=== PATIENT | female | born 1945 | race African-American/Black ===

== ENCOUNTER 2017-10-23 19:04 | Inpatient (IN) | payer MEDICARE, OTHER ==
[~2017-10-23] VITALS: Ht 170.2 cm; Wt 94.0 kg
[~2017-10-23 19:04] MED LIST: AMLODIPINE BESY10 MG; BP pill; BYSTOLIC 10MG10 MG; FENOFIBRATE145 M1; LEVEMIR100 UNITS/; NKM; [UNRECOGNIZED DRUG - REMARK]
[2017-10-23] MEDS ORDERED: Morphine Sulfate 2mg/ml Inj IVP ONE (19:15)
[2017-10-23 19:32] LABS: BASOPHILS % (AUTO) 1.4 % (0.0-2.0); EOSINOPHILS % (AUTO) 1.6 % (0.0-3.0); HEMATOCRIT 39.8 % (37.0-47.0); HEMOGLOBIN 12.4 G/DL (12.0-16.0); LYMPHOCYTES % (AUTO) 26.1 % (20.0-45.0); MEAN CORPUSCULAR VOLUME 92 FL (80-99); MONOCYTES % (AUTO) 7.1 % (1.0-10.0); NEUTROPHILS % (AUTO) 63.8 % (45.0-75.0); PLATELET COUNT 237 K/UL (150-450); RED BLOOD COUNT 4.34 M/UL (4.20-5.40); RED CELL DISTRIBUTION WIDTH 12.9 % (11.6-14.8); WHITE BLOOD COUNT 7.5 K/UL (4.8-10.8)
[2017-10-23 19:35] VITALS: BP 217/93
--- NOTE | 2017-10-23 19:40 | Emergency Room Report ---
History of Present Illness General Chief Complaint: Chest Pain Source: Patient, Medical Record Present Illness HPI Patient's a 72-year-old female presented after increased chest pain for approximately 30 minutes. Patient prior history of hypertension as well as cardiac disease. She reports having prior OH. She presenting pain to her back as well as to her chest. She reports having pain but cannot state the character of it. She denies any fever. She reports having diuretic use. Allergies: Coded Allergies: ASPIRIN (Unverified Allergy, Unknown, 05/08/14) PENICILLINS (Unverified Allergy, Unknown, 05/08/14) Uncoded Allergies: dye (Allergy, Severe, 05/09/14) Patient History Past Medical History: see triage record, old chart reviewed Reviewed Nursing Documentation: PMH: Agreed, PSxH: Agreed Nursing Documentation-PMH Past Medical History: No History, Except For Hx Hypertension: Yes Hx Diabetes: Yes Hx Cancer: No Hx Gastrointestinal Problems: No Hx Neurological Problems: Yes Hx Cerebrovascular Accident: Yes Review of Systems All Other Systems: negative except mentioned in HPI Physical Exam Vital Signs Date Time Temp Pulse Resp B/P (MAP) Pulse Ox O2 Delivery O2 Flow Rate FiO2 10/23/17 19:06 98.1 75 12 99 Room Air 10/23/17 19:35 217/93 Sp02 EP Interpretation: reviewed, normal General Appearance: normal inspection, well appearing, no apparent distress, alert, GCS 15 Head: atraumatic ENT: normal ENT inspection, hearing grossly normal, normal voice Neck: normal inspection, full range of motion, supple, no bony tend Respiratory: normal inspection, lungs clear, normal breath sounds, no respiratory distress, no retraction, no wheezing Cardiovascular #1: regular rate, rhythm, no edema Gastrointestinal: normal inspection, normal bowel sounds, non tender, soft, no guarding, no hernia Genitourinary: no CVA tenderness Musculoskeletal: normal inspection, back normal, normal range of motion Neurologic: normal inspection, alert, oriented x3, responsive, supervisor inspection department III-XII nml as tested, speech normal Psychiatric: normal inspection, judgement/insight normal, mood/affect normal Skin: normal inspection, normal color, no rash Medical Decision Making Diagnostic Impression: Primary Impression: Chest pain Additional Impression: Hypertensive urgency ER Course Patient presented for chest pain. Differential diagnosis included but was not limited to acute coronary syndrome, pulmonary embolism, pneumonia, aortic dissection, shingles, pneumothorax, aortic dissection, esophageal rupture, pericarditis. Because of complexity of patient's case laboratory testing and imaging studies were ordered.Lab for testing showed negative troponin as well as BNP approximately 300. EKG interpreted by me showed normal sinus rhythm with a rate of [address] changes. Generalized T-wave inversion was noted. CT the chest without contrast was ordered due to patient's possible effusions on plain film x-ray. CT showed no evidence of infiltrate. Due to the patient' s acute onset of chest pain as well as changes on EKG she'll be admitted to the hospital for further evaluation. Dr. Osuna was contacted for for inpatient management Labs Test 10/23/17 19:08 10/23/17 20:50 White Blood Count 7.5 K/UL (4.8-10.8) Red Blood Count 4.34 M/UL (4.20-5.40) Hemoglobin 12.4 G/DL (12.0-16.0) Hematocrit 39.8 % (37.0-47.0) Mean Corpuscular Volume 92 FL (80-99) Mean Corpuscular Hemoglobin 28.7 PG (27.0-31.0) Mean Corpuscular Hemoglobin Concent 31.3 G/DL (32.0-36.0) Red Cell Distribution Width 12.9 % (11.6-14.8) Platelet Count 237 K/UL (150-450) Mean Platelet Volume 8.4 FL (6.5-10.1) Neutrophils (%) (Auto) 63.8 % (45.0-75.0) Lymphocytes (%) (Auto) 26.1 % (20.0-45.0) Monocytes (%) (Auto) 7.1 % (1.0-10.0) Eosinophils (%) (Auto) 1.6 % (0.0-3.0) Basophils (%) (Auto) 1.4 % (0.0-2.0) Sodium Level 138 MMOL/L (136-145) Potassium Level 3.8 MMOL/L (3.5-5.1) Chloride Level 100 MMOL/L (98-107) Carbon Dioxide Level 29 MMOL/L (21-32) Anion Gap 9 mmol/L (5-15) Blood Urea Nitrogen 21 mg/dL (7-18) Creatinine 1.1 MG/DL (0.55-1.30) Estimat Glomerular Filtration Rate mL/min (>60) Glucose Level 280 MG/DL (74-106) Calcium Level 9.5 MG/DL (8.5-10.1) Total Bilirubin 0.2 MG/DL (0.2-1.0) Aspartate Amino Transf (AST/SGOT) 14 U/L (15-37) Alanine Aminotransferase (ALT/SGPT) 25 U/L (12-78) Alkaline Phosphatase 107 U/L (46-116) Total Creatine Kinase 192 U/L (26-308) Creatine Kinase MB 2.4 NG/ML (0.0-3.6) Creatine Kinase MB Relative Index 1.2 Troponin I 0.057 ng/mL (0.000-0.056) Pro-B-Type Natriuretic Peptide 307 pg/mL (0-125) Total Protein 9.1 G/DL (6.4-8.2) Albumin 3.9 G/DL (3.4-5.0) Globulin 5.2 g/dL Albumin/Globulin Ratio 0.8 (1.0-2.7) Lipase 175 U/L (73-393) Urine Color Pale yellow Urine Appearance Clear Urine pH 6.5 (4.5-8.0) Urine Specific [place] 1.005 (1.005-1.035) Urine Protein 2+ (NEGATIVE) Urine Glucose (UA) 4+ (NEGATIVE) Urine Ketones 1+ (NEGATIVE) Urine Occult Blood 2+ (NEGATIVE) Urine Nitrite Negative (NEGATIVE) Urine Bilirubin Negative (NEGATIVE) Urine Urobilinogen Normal MG/DL (0.0-1.0) Urine Leukocyte Esterase Negative (NEGATIVE) Urine RBC 2-4 /HPF (0 - 2) Urine WBC 0-2 /HPF (0 - 2) Urine Squamous Epithelial Cells Occasional /LPF Urine Bacteria Occasional /HPF (NONE) EKG Diagnostic Results Rate: normal Rhythm: NSR ST Segments: other - twave inversion Last Vital Signs Date Time Temp Pulse Resp B/P (MAP) Pulse Ox O2 Delivery O2 Flow Rate FiO2 10/23/17 19:35 98.1 25 217/93 99 Room Air 10/23/17 19:06 75 Status: unchanged Disposition: ADMITTED INPATIENT Condition: Serious Ashok Scanlon Oct 23, 2017 19:40
[2017-10-23 20:20] LABS: ANION GAP 9 mmol/L (5-15); BLOOD UREA NITROGEN 21 mg/dL (7-18); CALCIUM 9.5 MG/DL (8.5-10.1); CARBON DIOXIDE 29 MMOL/L (21-32); CHLORIDE 100 MMOL/L (98-107); CREATININE 1.1 MG/DL (0.55-1.30); POTASSIUM 3.8 MMOL/L (3.5-5.1); SODIUM 138 MMOL/L (136-145)
[2017-10-23 20:33] LABS: APPEARANCE,URINE CLEAR; BILIRUBIN, URINE NEGATIVE (NEGATIVE); COLOR,URINE PALE YELLOW; GLUCOSE, URINE (UA) 4+ (NEGATIVE); KETONES,URINE 1+ (NEGATIVE); LEUKOCYTE ESTERASE ,URINE NEGATIVE (NEGATIVE); NITRITE,URINE NEGATIVE (NEGATIVE); PH,URINE 6.5 (4.5-8.0); PROTEIN,URINE 2+ (NEGATIVE); UROBILINOGEN,URINE NORMAL MG/DL (0.0-1.0)
[2017-10-23 20:48] LABS: ALANINE AMINOTRANSFERASE 25 U/L (12-78); ALBUMIN 3.9 G/DL (3.4-5.0); ALBUMIN/GLOBULIN RATIO 0.8 (1.0-2.7); ALKALINE PHOSPHATASE 107 U/L (46-116); ASPARTATE AMINO TRANSFERASE 14 U/L (15-37); BILIRUBIN,TOTAL 0.2 MG/DL (0.2-1.0); CKMB 2.4 NG/ML (0.0-3.6); CREATINE KINASE 192 U/L (26-308)
[2017-10-23 22:18] VITALS: BP 189/66
[2017-10-23 23:03] VITALS: BP 159/63
[2017-10-23] MEDS ORDERED: Miralax 17gm pkt ORAL PRN (23:30)
[2017-10-23] MEDS ORDERED: Nitroglycerin Subl 0.4mg tab SL PRN (23:30)
[2017-10-24] VITALS (16 sets, daily range): BP systolic 97–186; BP diastolic 20–97
[2017-10-24 04:46] LABS: BASOPHILS % (AUTO) 1.4 % (0.0-2.0); EOSINOPHILS % (AUTO) 0.8 % (0.0-3.0); HEMATOCRIT 38.1 % (37.0-47.0); HEMOGLOBIN 12.5 G/DL (12.0-16.0); LYMPHOCYTES % (AUTO) 30.6 % (20.0-45.0); MEAN CORPUSCULAR VOLUME 91 FL (80-99); MONOCYTES % (AUTO) 6.1 % (1.0-10.0); PLATELET COUNT 235 K/UL (150-450); RED BLOOD COUNT 4.18 M/UL (4.20-5.40); RED CELL DISTRIBUTION WIDTH 12.4 % (11.6-14.8); WHITE BLOOD COUNT 8.7 K/UL (4.8-10.8)
[2017-10-24 05:20] LABS: ANION GAP 9 mmol/L (5-15); BLOOD UREA NITROGEN 18 mg/dL (7-18); CALCIUM 9.4 MG/DL (8.5-10.1); CARBON DIOXIDE 28 MMOL/L (21-32); CHLORIDE 100 MMOL/L (98-107); CHOLESTEROL 218 MG/DL (< 200); HDL CHOLESTEROL 49 MG/DL (40-60); POTASSIUM 5.3 MMOL/L (3.5-5.1); SODIUM 137 MMOL/L (136-145); TRIGLYCERIDES 91 MG/DL (30-150)
[2017-10-24] MEDS ORDERED: Enoxaparin 100mg Inj SUBQ ONE ×2 (05:58→06:00)
[2017-10-24] MEDS ORDERED: Enoxaparin 80mg Inj SUBQ ONE (06:00)
[2017-10-24] MEDS ORDERED: BENICAR HCT 401 EACH ORAL (07:11)
[2017-10-24] MEDS ORDERED: ASPIR 8181 MG ORAL (07:11)
[2017-10-24] MEDS ORDERED: AMLODIPINE BESY10 MG ORAL (07:11)
[2017-10-24] MEDS ORDERED: SPIRONOLACTONE1 EACH ORAL (07:11)
[2017-10-24] MEDS ORDERED: Morphine Sulfate 4mg/ml Inj IVP PRN ×3 (07:30→17:21)
[2017-10-24] MEDS ORDERED: Morphine Sulfate 2mg/ml Inj IVP PRN ×2 (07:30→17:21)
--- NOTE | 2017-10-24 08:31 | Diagnostic Imaging Report ---
Indication: Soreness of breath, chest pain Technique: CT scan of the chest was performed without intravenous contrast material or a specific request of the ordering physician. Continuous helical scanning was obtained with displayed 5 mm sections in axial and coronal planes. Dose: Total Dose Length Product - DLP [address] Dose Index - CTDIvol(s) 28.90 mGy. Automated exposure control was utilized for dose reduction. Comparison: None Findings: There is some calcification in the aorta and great vessels. Calcification is also noted in the coronary arteries. The heart is enlarged. Linear densities are noted in the left lower lung. There is also minimal linear density in the right base. There is a small nonobstructing left renal calculus. Slight perinephric stranding is noted around the right kidney. There is a slight S-shaped scoliosis of the thoracic spine. Degenerative changes noted in the thoracic spine. Impression: Bilateral atelectasis in the chest. Cardiomegaly. Atherosclerotic change with considerable coronary artery calcification. Nonobstructing left renal calculus. Mild perinephric stranding on the right. This is nonspecific and could be acute or chronic. Degenerative change in the thoracic spine. Scoliosis of the thoracic spine. The above report is concordant with preliminary reading by [facility] with minor difference. The CT scanner at [facility] is accredited by the [employer] and the scans are performed using protocols designed to limit radiation exposure to as low as reasonably achievable to attain images of sufficient resolution adequate for diagnostic evaluation.
[2017-10-24] MEDS ORDERED: Heparin 5000 units/ml inj SUBQ SCH (09:00)
[2017-10-24] MEDS ORDERED: Docusate 100mg cap ORAL SCH (09:00)
--- NOTE | 2017-10-24 09:29 | Diagnostic Imaging Report ---
Indication: Reason For Exam: SOB Technique: XRAY Chest 1v Comparison: 05/08/2014. Findings: The heart is enlarged. The lungs are clear. No pleural fluid. There is mild scoliosis of the thoracic spine. Impression: Cardiomegaly. Mild scoliosis of the thoracic spine. Otherwise negative.
[2017-10-24] MEDS ORDERED: Aspirin EC 81mg tab ORAL SCH (10:00)
--- NOTE | 2017-10-24 12:46 | Cardiac Electrophysiology PN ---
Subjective Subjective Cardiology consult dictated. Pt seen with RN. Adamantly refusing transfer for cardiac cath. Transfer to ICU on full dos elOvenox until troponin levels come down. Dictation # [id number] Objective Last 24 Hour Vital Signs Date Time Temp Pulse Resp B/P (MAP) Pulse Ox O2 Delivery O2 Flow Rate FiO2 10/24/17 09:57 75 155/66 10/24/17 08:00 98.2 75 19 155/66 100 Room Air 10/24/17 07:50 98.1 88 18 150/68 98 Room Air 10/24/17 06:56 80 16 174/70 100 10/24/17 06:51 174/72 10/24/17 04:47 76 17 177/68 96 Room Air 10/24/17 04:45 73 16 162/54 98 10/24/17 04:00 98.1 16 186/72 95 Room Air 10/24/17 01:00 71 16 185/74 98 10/23/17 23:03 97.7 66 16 159/63 100 Room Air 10/23/17 22:18 79 10 189/66 100 Room Air 10/23/17 19:40 79 217/93 10/23/17 19:35 98.1 25 217/93 99 Room Air 10/23/17 19:30 62 17 Room Air 10/23/17 19:06 98.1 75 12 99 Room Air Intake and Output 10/23/17 10/24/17 19:00 07:00 Intake Total 100 ml Balance 100 ml Intake Oral 100 ml # Voids 3 Laboratory Tests Test 10/23/17 19:08 10/23/17 20:50 10/24/17 00:15 10/24/17 03:40 White Blood Count 7.5 K/UL (4.8-10.8) 8.7 K/UL (4.8-10.8) Red Blood Count 4.34 M/UL (4.20-5.40) 4.18 M/UL (4.20-5.40) L Hemoglobin 12.4 G/DL (12.0-16.0) 12.5 G/DL (12.0-16.0) Hematocrit 39.8 % (37.0-47.0) 38.1 % (37.0-47.0) Mean Corpuscular Volume 92 FL (80-99) 91 FL (80-99) Mean Corpuscular Hemoglobin 28.7 PG (27.0-31.0) 29.9 PG (27.0-31.0) Mean Corpuscular Hemoglobin Concent 31.3 G/DL (32.0-36.0) L 32.8 G/DL (32.0-36.0) Red Cell Distribution Width 12.9 % (11.6-14.8) 12.4 % (11.6-14.8) Platelet Count 237 K/UL (150-450) 235 K/UL (150-450) Mean Platelet Volume 8.4 FL (6.5-10.1) 9.5 FL (6.5-10.1) Neutrophils (%) (Auto) 63.8 % (45.0-75.0) 61.0 % (45.0-75.0) Lymphocytes (%) (Auto) 26.1 % (20.0-45.0) 30.6 % (20.0-45.0) Monocytes (%) (Auto) 7.1 % (1.0-10.0) 6.1 % (1.0-10.0) Eosinophils (%) (Auto) 1.6 % (0.0-3.0) 0.8 % (0.0-3.0) Basophils (%) (Auto) 1.4 % (0.0-2.0) 1.4 % (0.0-2.0) Sodium Level 138 MMOL/L (136-145) 137 MMOL/L (136-145) Potassium Level 3.8 MMOL/L (3.5-5.1) 5.3 MMOL/L (3.5-5.1) H Chloride Level 100 MMOL/L (98-107) 100 MMOL/L (98-107) Carbon Dioxide Level 29 MMOL/L (21-32) 28 MMOL/L (21-32) Anion Gap 9 mmol/L (5-15) 9 mmol/L (5-15) Blood Urea Nitrogen 21 mg/dL (7-18) H 18 mg/dL (7-18) Creatinine 1.1 MG/DL (0.55-1.30) 1.0 MG/DL (0.55-1.30) Estimat Glomerular Filtration Rate mL/min (>60) mL/min (>60) Glucose Level 280 MG/DL (74-106) H 233 MG/DL (74-106) H Calcium Level 9.5 MG/DL (8.5-10.1) 9.4 MG/DL (8.5-10.1) Total Bilirubin 0.2 MG/DL (0.2-1.0) Aspartate Amino Transf (AST/SGOT) 14 U/L (15-37) L Alanine Aminotransferase (ALT/SGPT) 25 U/L (12-78) Alkaline Phosphatase 107 U/L (46-116) Total Creatine Kinase 192 U/L (26-308) Creatine Kinase MB 2.4 NG/ML (0.0-3.6) Creatine Kinase MB Relative Index 1.2 Troponin I 0.057 ng/mL (0.000-0.056) 12.900 ng/mL (0.000-0.056) Pro-B-Type Natriuretic Peptide 307 pg/mL (0-125) H Total Protein 9.1 G/DL (6.4-8.2) H Albumin 3.9 G/DL (3.4-5.0) Globulin 5.2 g/dL Albumin/Globulin Ratio 0.8 (1.0-2.7) L Lipase 175 U/L (73-393) Urine Color Pale yellow Urine Appearance Clear Urine pH 6.5 (4.5-8.0) Urine Specific [place] 1.005 (1.005-1.035) Urine Protein 2+ (NEGATIVE) H Urine Glucose (UA) 4+ (NEGATIVE) H Urine Ketones 1+ (NEGATIVE) H Urine Occult Blood 2+ (NEGATIVE) H Urine Nitrite Negative (NEGATIVE) Urine Bilirubin Negative (NEGATIVE) Urine Urobilinogen Normal MG/DL (0.0-1.0) Urine Leukocyte Esterase Negative (NEGATIVE) Urine RBC 2-4 /HPF (0 - 2) H Urine WBC 0-2 /HPF (0 - 2) Urine Squamous Epithelial Cells Occasional /LPF Urine Bacteria Occasional /HPF (NONE) Lactic Acid Level 1.00 mmol/L (0.66-2.22) Hemoglobin A1c 11.1 % (4.3-6.0) H Triglycerides Level 91 MG/DL (30-150) Cholesterol Level 218 MG/DL (< 200) H LDL Cholesterol 169 mg/dL (<100) H HDL Cholesterol 49 MG/DL (40-60) Cholesterol/HDL Ratio 4.4 (3.3-4.4) Thyroid Stimulating Hormone (TSH) 1.427 uiU/mL (0.358-3.740) Test 10/24/17 07:18 10/24/17 10:23 Hemoglobin A1c 8.8 % (4.3-6.0) H D-Dimer 0.53 mg/L FEU (0.00-0.49) H Troponin I 17.505 ng/mL (0.000-0.056) LEONEL JAMES Oct 24, 2017 12:45
[2017-10-24] MEDS: NovoLOG Insulin Flexpen SUBQ SCH ×3 (13:03→21:04)
[2017-10-24 15:28] LABS: INR 1.1 (0.9-1.1)
[2017-10-24] MEDS ORDERED: Nitroglycerin Subl 0.4mg tab SL PRN (17:21)
[2017-10-24] MEDS ORDERED: Miralax 17gm pkt ORAL PRN ×2 (17:22→17:30)
[2017-10-24] MEDS: Enoxaparin 80mg Inj SUBQ SCH (18:00)
[2017-10-24] MEDS ORDERED: Enoxaparin 80mg Inj SUBQ SCH (18:00)
[2017-10-24 18:26] LABS: INR 1.1 (0.9-1.1)
--- NOTE | 2017-10-24 18:55 | History and Physical ---
History of Present Illness General Date patient seen: Oct 24, 2017 Time patient seen: 18:56 Reason for Hospitalization: Chest Pain Present Illness HPI This is a 72 year old female with past medical history significant for hypertension, CAD, CVA and Dm presenting with substernal chest pain starting 30 minutes prior to presetation. Endorses associated dyspnea on exertion and diaphoresis. notes some nausea but no emesis. No abdominal pain, fevers or cough. EKG in the ER showed Twave changes. Initially hypertensive over 200. CT chest noncon unremarkable. initial trop negative but started rising today. patient evaluated by cardiology and offered transfer to higher level care for angiography but patient refused. Allergies: Coded Allergies: ASPIRIN (Unverified Allergy, Unknown, 05/08/14) PENICILLINS (Unverified Allergy, Unknown, 05/08/14) Uncoded Allergies: dye (Allergy, Severe, 05/09/14) Medication History Scheduled Amlodipine Besylate* (Amlodipine Besylate*), 10 MG ORAL DAILY, (Reported) Aspirin* (Aspir 81*), 81 MG ORAL DAILY, (Reported) No Known Medications* (NKM - No Known Medications*), 0 ., (Reported) Olmesartan/Hydrochlorothiazide 40-12.5MG (Benicar Hct 40-12.5 Mg Tablet), 1 TAB ORAL DAILY, (Reported) Spironolact/Hydrochlorothiazid (Spironolactone-Hctz 25-25 Tab), 1 TAB ORAL DAILY , (Reported) Miscellaneous Medications Amlodipine Besylate* (Amlodipine Besylate*), (Reported) Bysto (Bystolic), (Reported) Fenofibrate Nanocrystallized (Fenofibrate), (Reported) Insulin Detemir (Levemir), (Reported) [BP pill], (Reported) [Diabetic pill], (Reported) Patient History Healthcare decision maker Resuscitation status Full Code Advanced Directive on File Review of Systems All Other Systems: negative except mentioned in HPI Physical Exam General Appearance: WD/WN, no apparent distress, alert, lethargic HEENT: normocephalic, atraumatic Neck: non-tender, normal alignment Respiratory/Chest: chest wall non-tender, lungs clear, normal breath sounds Cardiovascular/Chest: normal peripheral pulses, normal rate, regular rhythm Abdomen: normal bowel sounds, non tender, soft Extremities: non-tender Neurologic: alert, oriented x 3 Last 24 Hour Vital Signs Date Time Temp Pulse Resp B/P (MAP) Pulse Ox O2 Delivery O2 Flow Rate FiO2 10/24/17 18:00 65 16 151/60 100 Nasal Cannula 2.0 10/24/17 17:00 65 13 151/75 100 Nasal Cannula 2.0 10/24/17 16:00 64 16 127/55 100 Nasal Cannula 2.0 10/24/17 16:00 74 10/24/17 15:00 98.6 75 19 136/55 100 Nasal Cannula 2.0 10/24/17 14:00 68 16 144/97 100 10/24/17 09:57 75 155/66 10/24/17 08:00 98.2 75 19 155/66 100 Room Air 10/24/17 07:50 98.1 88 18 150/68 98 Room Air 10/24/17 06:56 80 16 174/70 100 10/24/17 06:51 174/72 10/24/17 04:47 76 17 177/68 96 Room Air 10/24/17 04:45 73 16 162/54 98 10/24/17 04:00 98.1 16 186/72 95 Room Air 10/24/17 01:00 71 16 185/74 98 10/23/17 23:03 97.7 66 16 159/63 100 Room Air 10/23/17 22:18 79 10 189/66 100 Room Air 10/23/17 19:40 79 217/93 10/23/17 19:35 98.1 25 217/93 99 Room Air 10/23/17 19:30 62 17 Room Air 10/23/17 19:06 98.1 75 12 99 Room Air Intake and Output 10/23/17 10/24/17 19:00 07:00 Intake Total 100 ml Balance 100 ml Intake Oral 100 ml # Voids 3 Laboratory Tests Test 10/23/17 19:08 10/23/17 20:50 10/24/17 00:15 10/24/17 03:40 White Blood Count 7.5 K/UL (4.8-10.8) 8.7 K/UL (4.8-10.8) Red Blood Count 4.34 M/UL (4.20-5.40) 4.18 M/UL (4.20-5.40) L Hemoglobin 12.4 G/DL (12.0-16.0) 12.5 G/DL (12.0-16.0) Hematocrit 39.8 % (37.0-47.0) 38.1 % (37.0-47.0) Mean Corpuscular Volume 92 FL (80-99) 91 FL (80-99) Mean Corpuscular Hemoglobin 28.7 PG (27.0-31.0) 29.9 PG (27.0-31.0) Mean Corpuscular Hemoglobin Concent 31.3 G/DL (32.0-36.0) L 32.8 G/DL (32.0-36.0) Red Cell Distribution Width 12.9 % (11.6-14.8) 12.4 % (11.6-14.8) Platelet Count 237 K/UL (150-450) 235 K/UL (150-450) Mean Platelet Volume 8.4 FL (6.5-10.1) 9.5 FL (6.5-10.1) Neutrophils (%) (Auto) 63.8 % (45.0-75.0) 61.0 % (45.0-75.0) Lymphocytes (%) (Auto) 26.1 % (20.0-45.0) 30.6 % (20.0-45.0) Monocytes (%) (Auto) 7.1 % (1.0-10.0) 6.1 % (1.0-10.0) Eosinophils (%) (Auto) 1.6 % (0.0-3.0) 0.8 % (0.0-3.0) Basophils (%) (Auto) 1.4 % (0.0-2.0) 1.4 % (0.0-2.0) Sodium Level 138 MMOL/L (136-145) 137 MMOL/L (136-145) Potassium Level 3.8 MMOL/L (3.5-5.1) 5.3 MMOL/L (3.5-5.1) H Chloride Level 100 MMOL/L (98-107) 100 MMOL/L (98-107) Carbon Dioxide Level 29 MMOL/L (21-32) 28 MMOL/L (21-32) Anion Gap 9 mmol/L (5-15) 9 mmol/L (5-15) Blood Urea Nitrogen 21 mg/dL (7-18) H 18 mg/dL (7-18) Creatinine 1.1 MG/DL (0.55-1.30) 1.0 MG/DL (0.55-1.30) Estimat Glomerular Filtration Rate mL/min (>60) mL/min (>60) Glucose Level 280 MG/DL (74-106) H 233 MG/DL (74-106) H Calcium Level 9.5 MG/DL (8.5-10.1) 9.4 MG/DL (8.5-10.1) Total Bilirubin 0.2 MG/DL (0.2-1.0) Aspartate Amino Transf (AST/SGOT) 14 U/L (15-37) L Alanine Aminotransferase (ALT/SGPT) 25 U/L (12-78) Alkaline Phosphatase 107 U/L (46-116) Total Creatine Kinase 192 U/L (26-308) Creatine Kinase MB 2.4 NG/ML (0.0-3.6) Creatine Kinase MB Relative Index 1.2 Troponin I 0.057 ng/mL (0.000-0.056) 12.900 ng/mL (0.000-0.056) Pro-B-Type Natriuretic Peptide 307 pg/mL (0-125) H Total Protein 9.1 G/DL (6.4-8.2) H Albumin 3.9 G/DL (3.4-5.0) Globulin 5.2 g/dL Albumin/Globulin Ratio 0.8 (1.0-2.7) L Lipase 175 U/L (73-393) Urine Color Pale yellow Urine Appearance Clear Urine pH 6.5 (4.5-8.0) Urine Specific [place] 1.005 (1.005-1.035) Urine Protein 2+ (NEGATIVE) H Urine Glucose (UA) 4+ (NEGATIVE) H Urine Ketones 1+ (NEGATIVE) H Urine Occult Blood 2+ (NEGATIVE) H Urine Nitrite Negative (NEGATIVE) Urine Bilirubin Negative (NEGATIVE) Urine Urobilinogen Normal MG/DL (0.0-1.0) Urine Leukocyte Esterase Negative (NEGATIVE) Urine RBC 2-4 /HPF (0 - 2) H Urine WBC 0-2 /HPF (0 - 2) Urine Squamous Epithelial Cells Occasional /LPF Urine Bacteria Occasional /HPF (NONE) Lactic Acid Level 1.00 mmol/L (0.66-2.22) Hemoglobin A1c 11.1 % (4.3-6.0) H Triglycerides Level 91 MG/DL (30-150) Cholesterol Level 218 MG/DL (< 200) H LDL Cholesterol 169 mg/dL (<100) H HDL Cholesterol 49 MG/DL (40-60) Cholesterol/HDL Ratio 4.4 (3.3-4.4) Thyroid Stimulating Hormone (TSH) 1.427 uiU/mL (0.358-3.740) Test 10/24/17 07:18 10/24/17 10:23 10/24/17 14:50 10/24/17 18:04 Hemoglobin A1c 8.8 % (4.3-6.0) H D-Dimer 0.53 mg/L FEU (0.00-0.49) H Troponin I 17.505 ng/mL (0.000-0.056) 10.242 ng/mL (0.000-0.056) Prothrombin Time 11.0 SEC (9.30-11.50) 11.1 SEC (9.30-11.50) Prothromb Time International Ratio 1.1 (0.9-1.1) 1.1 (0.9-1.1) Activated Partial Thromboplast Time 30 SEC (23-33) 30 SEC (23-33) Height (Feet): 5 Height (Inches): 7.00 Weight (Pounds): 190 Medications Current Medications Medications (Trade) Dose Ordered Sig/Darrion Route PRN Reason Start Time Stop Time Status Last Admin Dose Admin Acetaminophen (Tylenol) 650 mg Q4H PRN ORAL Mild Pain (Pain Scale 1-3) 10/24/17 17:20 11/22/17 17:19 Amlodipine Besylate (Norvasc) 10 mg DAILY ORAL 10/25/17 09:00 11/23/17 08:59 Atorvastatin Calcium (Lipitor) 80 mg BEDTIME ORAL 10/24/17 21:00 11/23/17 20:59 Bisacodyl (Dulcolax) 10 mg DAILYPRN PRN RECTAL Constipation 10/24/17 17:30 11/22/17 17:19 Dextrose (Dextrose 50%) STAT PRN IV Hypoglycemia 10/24/17 17:20 11/23/17 17:19 Docusate Sodium (Colace) 100 mg EVERY 12 HOURS ORAL 10/24/17 21:00 11/23/17 08:59 Enoxaparin Sodium (Lovenox) 80 mg Q12HR@0600,1800 SUBQ 10/24/17 18:00 11/23/17 17:59 Insulin Aspart (NovoLOG) BEFORE MEALS AND HS SUBQ 10/24/17 21:00 11/23/17 11:29 Insulin Detemir (Levemir) 20 units Q12HR SUBQ 10/24/17 21:00 11/23/17 20:59 Metoprolol Tartrate (Lopressor) 50 mg Q12HR ORAL 10/24/17 21:00 11/23/17 20:59 Morphine Sulfate (Morphine Sulfate) 2 mg Q4H PRN IVP MODERATE PAIN 10/24/17 17:21 10/31/17 17:20 Morphine Sulfate (Morphine Sulfate) 4 mg Q4H PRN IVP Severe Pain (Pain Scale 7-10) 10/24/17 17:21 10/31/17 17:20 Nitroglycerin (Ntg) 0.4 mg Q5M PRN SL Prn Chest Pain 10/24/17 17:21 11/22/17 17:20 Ondansetron HCl (Zofran) 4 mg Q6H PRN IVP Nausea & Vomiting 10/24/17 17:30 11/22/17 23:29 Polyethylene Glycol (Miralax) 17 gm DAILYPRN PRN ORAL Constipation 10/24/17 17:30 11/22/17 17:21 Assessment/Plan Status Narrative assessment: NSTEMI hypertensive emergency HTN DM CAD CVA Plan: - admit inpatient - cardiology consulted - ICU transfer - patient refusing transfer to higher level care - lovenox - aspirin - lipitor - nitro - monitor BP - ISS - diabetic cardiac diet - DVT ppx Assessment/Plan On the above date of service, I spent a total of 36 minutes in the ICU evaluating, managing, and providing critical care services to this patient, including time spent documenting these activities, counseling patient/family, and coordinating care. Jose Alberto Starr M.D. Oct 24, 2017 18:54
[2017-10-24] MEDS ORDERED: Atorvastatin 80mg tab ORAL SCH (21:00)
[2017-10-24] MEDS ORDERED: Metoprolol Tartrate 50mg tab ORAL SCH (21:00)
[2017-10-24] MEDS ORDERED: Levemir Flexpen SUBQ SCH (21:00)
[2017-10-24] MEDS: Levemir Flexpen SUBQ SCH (21:03)
[2017-10-24] MEDS: Docusate 100mg cap ORAL SCH (21:05)
[2017-10-24] MEDS: Atorvastatin 80mg tab ORAL SCH (21:07)
[2017-10-24] MEDS: Metoprolol Tartrate 50mg tab ORAL SCH (21:15)
--- NOTE | 2017-10-24 21:15 | Consultation ---
DATE OF CONSULTATION: 10/24/2017 CARDIOLOGY CONSULTATION CONSULTING PHYSICIAN: Tonny Zayas M.D. REFERRING PHYSICIAN: Roxie Pizarro M.D. REASON FOR CONSULTATION: Myocardial infarction. HISTORY OF PRESENT ILLNESS: The patient is a very pleasant 72-year-old lady with history of hypertension, diabetes, hyperlipidemia as well history of coronary artery disease with history of prior stent placement in 2013. Then, the patient presented to [facility] with chest pain and was transferred to [facility] and underwent cardiac catheterization and a stent placement. The patient has not had a regular cardiology followup. The patient presented to the emergency room complaining of chest pain and shortness of breath. The patient's blood pressure was extremely high at 217/93 and initial troponin was mildly elevated. Subsequent troponin went up to 12. The patient's EKG did not show ST elevation, however, showed inferolateral ischemia. The patient also underwent an echocardiogram that showed ejection fraction of 60%. At the time of my evaluation with the RN present, the patient does not have any chest pain or shortness of breath. PAST MEDICAL HISTORY: 1. Hypertension. 2. Diabetes. 3. Hyperlipidemia. 4. Obesity. 5. Prior myocardial infarction and stent placement. FAMILY HISTORY: Noncontributory. SOCIAL HISTORY: She lives at home. Does not smoke or drink alcohol. REVIEW OF SYSTEMS: Her review of systems was performed and was negative other than what was mentioned in the history of present illness. PHYSICAL EXAMINATION: VITAL SIGNS: Blood pressure is 155/66, pulse 75, respirations 18, and temperature 98.2 degrees. HEAD AND NECK: Shows no JVD. LUNGS: Clear. CARDIOVASCULAR: Shows regular S1 and S2 with no gallop or murmur. ABDOMEN: Soft. EXTREMITIES: No pedal edema. LABORATORY AND DIAGNOSTIC DATA: EKG shows sinus rhythm with voltage criteria for left ventricular hypertrophy as well as inferolateral ischemia, inferolateral ST-T wave abnormalities. Labs showed white count of 8.7, hemoglobin of 12, hematocrit of 38, and platelet count of 235. Sodium 137, potassium 5.3, BUN of 18, creatinine of 1, and glucose of 233. Troponin initially was 0.05 and then 12.9 and then 17.5. ASSESSMENT AND PLAN: 1. Aqf-UD-swlmmydda myocardial infarction. The patient currently does not have any chest pain. I recommended the patient to be transferred for cardiac catheterization. I had discussion with the patient with the RN present. The patient is adamant that she does not want to have any procedure done and does not want to be transferred. I will transfer the patient to intensive care unit and treat the patient medically. In the meantime, continue the patient on aspirin and Lipitor. Change the patient's Bystolic to metoprolol mg b.i.d. as well and change the Lovenox to full dose Lovenox 1 mg/kg subcutaneous b.i.d. until troponin levels come down. 2. Accelerated hypertension with blood pressure of more than 200. Change Bystolic to metoprolol 50 mg b.i.d. and continue Norvasc and Lipitor. In the meantime, I will order a chest CT angiogram to rule out pulmonary embolism and aortic dissection. Regular chest CT has already been performed that showed cardiomegaly and bilateral atelectasis. 3. Insulin-dependent diabetes. 4. Hyperlipidemia. 5. Obesity. Thank you very much, Dr. Pizarro, for allowing me to participate in the care of this patient. Please do not hesitate to contact me for any questions regarding my evaluation. Tonny Zayas M.D. DR: Michael JOB#: [id number] CC:
[2017-10-25] VITALS (24 sets, daily range): BP systolic 108–179; BP diastolic 49–94
[2017-10-25 02:16] LABS: BASOPHILS % (AUTO) 1.3 % (0.0-2.0); EOSINOPHILS % (AUTO) 2.2 % (0.0-3.0); HEMATOCRIT 35.2 % (37.0-47.0); HEMOGLOBIN 11.2 G/DL (12.0-16.0); LYMPHOCYTES % (AUTO) 43.3 % (20.0-45.0); MEAN CORPUSCULAR VOLUME 91 FL (80-99); MONOCYTES % (AUTO) 8.1 % (1.0-10.0); NEUTROPHILS % (AUTO) 45.2 % (45.0-75.0); PLATELET COUNT 246 K/UL (150-450); RED BLOOD COUNT 3.89 M/UL (4.20-5.40); RED CELL DISTRIBUTION WIDTH 12.5 % (11.6-14.8); WHITE BLOOD COUNT 7.6 K/UL (4.8-10.8)
[2017-10-25 02:30] LABS: ANION GAP 7 mmol/L (5-15); BLOOD UREA NITROGEN 29 mg/dL (7-18); CARBON DIOXIDE 28 MMOL/L (21-32); CHLORIDE 103 MMOL/L (98-107); CREATININE 1.4 MG/DL (0.55-1.30); PHOSPHORUS 3.9 MG/DL (2.5-4.9); POTASSIUM 3.8 MMOL/L (3.5-5.1); SODIUM 138 MMOL/L (136-145)
[2017-10-25] MEDS: Enoxaparin 80mg Inj SUBQ SCH (06:11)
[2017-10-25] MEDS: NovoLOG Insulin Flexpen SUBQ SCH ×4 (06:13→20:37)
[2017-10-25] MEDS: Metoprolol Tartrate 50mg tab ORAL SCH ×2 (09:05→20:34)
[2017-10-25] MEDS: Docusate 100mg cap ORAL SCH ×2 (09:06→20:34)
[2017-10-25] MEDS: Levemir Flexpen SUBQ SCH ×2 (09:13→20:36)
--- NOTE | 2017-10-25 12:30 | General Progress Note ---
Assessment/Plan Problem List: (1) Hypertensive emergency ICD Codes: I16.1 - Hypertensive emergency SNOMED: 726437370159325 (2) NSTEMI (non-ST elevated myocardial infarction) ICD Codes: I21.4 - Non-ST elevation (NSTEMI) myocardial infarction SNOMED: 606749014 (3) HLD (hyperlipidemia) ICD Codes: E78.5 - Hyperlipidemia, unspecified SNOMED: 74465041 (4) Chest pain ICD Codes: R07.9 - Chest pain, unspecified SNOMED: 81152735 (5) Uncontrolled diabetes mellitus ICD Codes: E11.9 - Type 2 diabetes mellitus without complications SNOMED: 878172640 (6) JEWELL (acute kidney injury) ICD Codes: N17.9 - Acute kidney failure, unspecified SNOMED: 03494658 Status: stable Assessment/Plan - cardiology consulted - trop peak at 17, now down to 4.5 - patient refusing transfer to higher level care for cardiac cath - lovenox per cardiology - aspirin - plavix - lipitor - nitro PRN - monitor BP - A1C 8.8 - cont levemir + MARY ALICE - diabetic cardiac diet DVT ppx w/ SCDs, lovenox FULL CODE Dispo: d/c pending cardiac clearance, likely in 1-2 days D/w pt/family, RN, SW/CM, cardiology regarding mgmt and dispo Subjective Date patient seen: Oct 25, 2017 Time patient seen: 12:30 Constitutional: Reports: no symptoms HEENT: Reports: no symptoms Cardiovascular: Reports: chest pain Respiratory: Reports: no symptoms Gastrointestinal/Abdominal: Reports: no symptoms Genitourinary: Reports: no symptoms Neurologic/Psychiatric: Reports: no symptoms Endocrine: Reports: no symptoms Hematologic/Lymphatic: Reports: no symptoms Allergies: Coded Allergies: ASPIRIN (Unverified Allergy, Unknown, 05/08/14) PENICILLINS (Unverified Allergy, Unknown, 05/08/14) Uncoded Allergies: dye (Allergy, Severe, 05/09/14) All Systems: reviewed and negative except above Subjective No acute o/n events Trop trending down to 4.5 this AM Pt states chest pain improved. Has not ambulated yet. Denies f/c, n/v, d/c, abd pain, SOB Objective Last 24 Hour Vital Signs Date Time Temp Pulse Resp B/P (MAP) Pulse Ox O2 Delivery O2 Flow Rate FiO2 1/22/18 11:00 59 23 153/52 100 Nasal Cannula 2.0 10/25/17 10:00 64 14 179/65 100 Nasal Cannula 2.0 10/25/17 09:05 64 140/63 10/25/17 09:05 66 140/63 10/25/17 09:00 65 16 147/64 100 Nasal Cannula 2.0 10/25/17 08:00 61 10/25/17 08:00 97.6 62 17 140/63 100 Nasal Cannula 2.0 10/25/17 07:00 65 13 160/58 100 Nasal Cannula 2.0 10/25/17 06:00 61 16 143/64 100 Nasal Cannula 2.0 10/25/17 05:00 60 16 143/64 100 Nasal Cannula 2.0 10/25/17 04:00 59 10/25/17 04:00 98.2 59 16 139/54 100 Nasal Cannula 2.0 10/25/17 03:00 60 16 143/64 100 Nasal Cannula 2.0 10/25/17 02:00 62 17 149/61 100 Nasal Cannula 2.0 10/25/17 01:00 61 16 146/64 100 Nasal Cannula 2.0 10/25/17 00:00 97.8 62 16 108/49 100 Nasal Cannula 2.0 10/25/17 00:00 67 10/24/17 23:00 61 17 156/62 100 Nasal Cannula 2.0 10/24/17 22:00 62 17 132/56 100 Nasal Cannula 2.0 10/24/17 21:15 66 128/67 10/24/17 21:00 65 16 128/67 100 Nasal Cannula 2.0 10/24/17 20:00 67 10/24/17 20:00 98.0 67 16 97/67 100 Nasal Cannula 2.0 10/24/17 19:00 68 16 120/20 100 Nasal Cannula 2.0 10/24/17 18:00 65 16 151/60 100 Nasal Cannula 2.0 10/24/17 17:00 65 13 151/75 100 Nasal Cannula 2.0 10/24/17 16:00 64 16 127/55 100 Nasal Cannula 2.0 10/24/17 16:00 74 10/24/17 15:00 98.6 75 19 136/55 100 Nasal Cannula 2.0 10/24/17 14:00 68 16 144/97 100 Intake and Output 10/24/17 10/25/17 19:00 07:00 Intake Total 100 ml Output Total 0 ml 300 ml Balance 0 ml -200 ml Intake Oral 100 ml Output Urine Total 0 ml 300 ml # Voids 1 # Bowel Movements 1 Laboratory Tests 10/24/17 14:50: Prothrombin Time 11.0, Prothromb Time International Ratio 1.1, Activated Partial Thromboplast Time 30 10/24/17 18:04: Prothrombin Time 11.1, Prothromb Time International Ratio 1.1, Activated Partial Thromboplast Time 30, Troponin I 10.242H 10/25/17 01:50: Troponin I 7.514H, White Blood Count 7.6, Red Blood Count 3.89L, Hemoglobin 11.2L, Hematocrit 35.2L, Mean Corpuscular Volume 91, Mean Corpuscular Hemoglobin 28.9, Mean Corpuscular Hemoglobin Concent 32.0, Red Cell Distribution Width 12.5, Platelet Count 246, Mean Platelet Volume 8.4, Neutrophils (%) (Auto) 45.2, Lymphocytes (%) (Auto) 43.3, Monocytes (%) (Auto) 8.1, Eosinophils (%) (Auto) 2.2, Basophils (%) (Auto) 1.3, Sodium Level 138, Potassium Level 3.8, Chloride Level 103, Carbon Dioxide Level 28, Anion Gap 7, Blood Urea Nitrogen 29H, Creatinine 1.4H, Estimat Glomerular Filtration Rate , Glucose Level 160H, Calcium Level 9.0, Phosphorus Level 3.9, Magnesium Level 1.8 10/25/17 10:00: Troponin I 4.513H Height (Feet): 5 Height (Inches): 7.00 Weight (Pounds): 205 Objective General: alert, cooperative, no distress, appears stated age Head: normocephalic, without obvious abnormality, atraumatic Eyes: conjunctivae/corneas clear. PERRL, EOM's intact Throat: lips, mucosa, and tongue normal. MMM Neck: supple, symmetrical, trachea midline, and no JVD Lungs: clear to auscultation bilaterally Heart: regular rate and rhythm, S1, S2 normal, no murmur, click, rub or gallop Abdomen: soft, non-tender, non-distended, bowel sounds normal Extremities: extremities normal, atraumatic, no cyanosis or edema Pulses: 2+ and symmetric Skin: skin color, texture, turgor normal; no rashes or lesions Neurologic: grossly normal, no focal deficits Enrrique Gonzalez M.D. Oct 25, 2017 12:30
--- NOTE | 2017-10-25 15:05 | Cardiac Electrophysiology PN ---
Assessment/Plan Assessment/Plan 1. Ryk-HS-xnobiuobu myocardial infarction with peak troponin 17.5. Now down to 4.5. Denies any chest pain. Change Lovenox to 1 mg/kg subcutaneous daily Allergic to Aspirin. Start Plavix 75 daily. Continue Lopressor and Lipitor. 2. Accelerated hypertension with blood pressure of more than 200. Better on metoprolol 50 mg b.i.d. and Norvasc 10 daily. 3. Insulin-dependent diabetes. 4. Hyperlipidemia. 5. Obesity. MIESHA RN. Transfer to [facility] Subjective Subjective In ICU with no chest pain or SOB. Still refusing cardiac cath. Objective Last 24 Hour Vital Signs Date Time Temp Pulse Resp B/P (MAP) Pulse Ox O2 Delivery O2 Flow Rate FiO2 10/25/17 13:00 58 17 139/52 100 Nasal Cannula 2.0 10/25/17 12:00 97.8 60 17 144/61 100 Nasal Cannula 2.0 10/25/17 11:00 59 23 153/52 100 Nasal Cannula 2.0 10/25/17 10:00 64 14 179/65 100 Nasal Cannula 2.0 10/25/17 09:05 64 140/63 10/25/17 09:05 66 140/63 10/25/17 09:00 65 16 147/64 100 Nasal Cannula 2.0 10/25/17 08:00 61 10/25/17 08:00 97.6 62 17 140/63 100 Nasal Cannula 2.0 10/25/17 07:00 65 13 160/58 100 Nasal Cannula 2.0 10/25/17 06:00 61 16 143/64 100 Nasal Cannula 2.0 10/25/17 05:00 60 16 143/64 100 Nasal Cannula 2.0 10/25/17 04:00 59 10/25/17 04:00 98.2 59 16 139/54 100 Nasal Cannula 2.0 10/25/17 03:00 60 16 143/64 100 Nasal Cannula 2.0 10/25/17 02:00 62 17 149/61 100 Nasal Cannula 2.0 10/25/17 01:00 61 16 146/64 100 Nasal Cannula 2.0 10/25/17 00:00 97.8 62 16 108/49 100 Nasal Cannula 2.0 10/25/17 00:00 67 10/24/17 23:00 61 17 156/62 100 Nasal Cannula 2.0 10/24/17 22:00 62 17 132/56 100 Nasal Cannula 2.0 10/24/17 21:15 66 128/67 10/24/17 21:00 65 16 128/67 100 Nasal Cannula 2.0 10/24/17 20:00 67 10/24/17 20:00 98.0 67 16 97/67 100 Nasal Cannula 2.0 10/24/17 19:00 68 16 120/20 100 Nasal Cannula 2.0 10/24/17 18:00 65 16 151/60 100 Nasal Cannula 2.0 10/24/17 17:00 65 13 151/75 100 Nasal Cannula 2.0 10/24/17 16:00 64 16 127/55 100 Nasal Cannula 2.0 10/24/17 16:00 74 10/24/17 15:00 98.6 75 19 136/55 100 Nasal Cannula 2.0 Neck: non-tender Intake and Output 10/24/17 10/25/17 19:00 07:00 Intake Total 100 ml Output Total 0 ml 300 ml Balance 0 ml -200 ml Intake Oral 100 ml Output Urine Total 0 ml 300 ml # Voids 1 # Bowel Movements 1 Laboratory Tests Test 10/24/17 18:04 10/25/17 01:50 10/25/17 10:00 Prothrombin Time 11.1 SEC (9.30-11.50) Prothromb Time International Ratio 1.1 (0.9-1.1) Activated Partial Thromboplast Time 30 SEC (23-33) Troponin I 10.242 ng/mL (0.000-0.056) 7.514 ng/mL (0.000-0.056) 4.513 ng/mL (0.000-0.056) White Blood Count 7.6 K/UL (4.8-10.8) Red Blood Count 3.89 M/UL (4.20-5.40) L Hemoglobin 11.2 G/DL (12.0-16.0) L Hematocrit 35.2 % (37.0-47.0) L Mean Corpuscular Volume 91 FL (80-99) Mean Corpuscular Hemoglobin 28.9 PG (27.0-31.0) Mean Corpuscular Hemoglobin Concent 32.0 G/DL (32.0-36.0) Red Cell Distribution Width 12.5 % (11.6-14.8) Platelet Count 246 K/UL (150-450) Mean Platelet Volume 8.4 FL (6.5-10.1) Neutrophils (%) (Auto) 45.2 % (45.0-75.0) Lymphocytes (%) (Auto) 43.3 % (20.0-45.0) Monocytes (%) (Auto) 8.1 % (1.0-10.0) Eosinophils (%) (Auto) 2.2 % (0.0-3.0) Basophils (%) (Auto) 1.3 % (0.0-2.0) Sodium Level 138 MMOL/L (136-145) Potassium Level 3.8 MMOL/L (3.5-5.1) Chloride Level 103 MMOL/L (98-107) Carbon Dioxide Level 28 MMOL/L (21-32) Anion Gap 7 mmol/L (5-15) Blood Urea Nitrogen 29 mg/dL (7-18) H Creatinine 1.4 MG/DL (0.55-1.30) H Estimat Glomerular Filtration Rate mL/min (>60) Glucose Level 160 MG/DL (74-106) H Calcium Level 9.0 MG/DL (8.5-10.1) Phosphorus Level 3.9 MG/DL (2.5-4.9) Magnesium Level 1.8 MG/DL (1.8-2.4) Microbiology Date/Time Source Procedure Growth Status 10/24/17 00:15 Blood Blood Culture - Preliminary NO GROWTH AFTER 24 HOURS Resulted 10/24/17 00:15 Blood Blood Culture - Preliminary Resulted Objective HEAD AND NECK: No JVD. LUNGS: Clear. CARDIOVASCULAR: Regular S1 and S2 with no gallop or murmur. ABDOMEN: Soft. EXTREMITIES: No pedal edema. LEONEL JAMES Oct 25, 2017 15:05
[2017-10-25] MEDS: Atorvastatin 80mg tab ORAL SCH (20:33)
[2017-10-26] VITALS (20 sets, daily range): BP systolic 14–186; BP diastolic 55–101
[2017-10-26] MEDS: NovoLOG Insulin Flexpen SUBQ SCH ×4 (06:28→22:25)
[2017-10-26] MEDS: Docusate 100mg cap ORAL SCH ×2 (08:43→22:21)
[2017-10-26] MEDS: Metoprolol Tartrate 50mg tab ORAL SCH ×2 (08:43→22:21)
[2017-10-26] MEDS: Levemir Flexpen SUBQ SCH ×2 (08:55→22:26)
[2017-10-26] MEDS ORDERED: Enoxaparin 80mg Inj SUBQ SCH (09:00)
--- NOTE | 2017-10-26 16:15 | Cardiac Electrophysiology PN ---
Assessment/Plan Assessment/Plan 1. Dpl-CV-qymuggwdy myocardial infarction with peak troponin 17.5. Down to 4.5. Denies any chest pain. On Lovenox to 1 mg/kg subcutaneous daily Aspirin, Plavix , Lopressor and Lipitor. Refused labs today. Refuses cardiac cath. 2. Accelerated hypertension with blood pressure of more than 200. Better on metoprolol 50 mg b.i.d. and Norvasc 10 daily. 3. Insulin-dependent diabetes. 4. Hyperlipidemia. 5. Obesity. MIESHA RN. OK to DC from cardiac stand point. Subjective Subjective In ICU with no chest pain or SOB. No arrhythmias on tele. Objective Last 24 Hour Vital Signs Date Time Temp Pulse Resp B/P (MAP) Pulse Ox O2 Delivery O2 Flow Rate FiO2 10/26/17 16:00 98.4 61 17 153/60 98 Room Air 10/26/17 15:00 63 17 159/66 100 Room Air 10/26/17 14:00 64 16 155/62 100 Room Air 10/26/17 13:00 67 18 149/63 98 Nasal Cannula 2.0 10/26/17 12:00 98.6 63 18 186/58 100 Nasal Cannula 2.0 10/26/17 12:00 58 10/26/17 11:00 67 18 155/55 98 Nasal Cannula 2.0 10/26/17 10:00 66 18 140/96 98 Nasal Cannula 2.0 10/26/17 09:00 65 18 155/59 98 Nasal Cannula 2.0 10/26/17 08:43 71 160/58 10/26/17 08:43 66 160/58 10/26/17 08:00 67 10/26/17 08:00 98.0 65 13 160/58 100 Nasal Cannula 2.0 10/26/17 07:00 58 14 161/78 100 Nasal Cannula 2.0 10/26/17 06:00 65 13 149/59 100 Nasal Cannula 2.0 10/26/17 05:00 65 17 152/61 100 Nasal Cannula 2.0 10/26/17 04:00 63 10/26/17 04:00 98.0 63 18 160/58 98 Nasal Cannula 2.0 10/26/17 03:00 65 19 183/69 98 Nasal Cannula 2.0 10/26/17 02:00 63 18 168/76 99 Nasal Cannula 2.0 10/26/17 01:00 60 17 146/61 99 Nasal Cannula 2.0 10/26/17 00:00 58 10/26/17 00:00 98.3 60 17 132/101 100 Nasal Cannula 2.0 10/25/17 23:00 60 18 149/74 100 Nasal Cannula 2.0 10/25/17 22:00 63 13 152/59 98 Nasal Cannula 2.0 10/25/17 21:00 69 15 146/94 100 Nasal Cannula 2.0 10/25/17 20:34 69 155/54 10/25/17 20:00 100 10/25/17 20:00 98.3 73 14 155/54 100 Nasal Cannula 2.0 10/25/17 19:00 68 16 175/66 100 Nasal Cannula 2.0 10/25/17 18:00 65 18 139/55 100 Nasal Cannula 2.0 10/25/17 17:00 67 18 155/70 100 Nasal Cannula 2.0 Intake and Output 10/25/17 10/26/17 19:00 07:00 Output Total 4 ml 700 ml Balance -4 ml -700 ml Output Urine Total 4 ml 700 ml # Voids 1 Microbiology Date/Time Source Procedure Growth Status 10/24/17 00:15 Blood Blood Culture - Preliminary NO GROWTH AFTER 48 HOURS Resulted 10/24/17 00:15 Blood Blood Culture - Preliminary Staphylococcus Sp Coag Neg Resulted Objective HEAD AND NECK: No JVD. LUNGS: Clear. CARDIOVASCULAR: Regular S1 and S2 with no gallop or murmur. ABDOMEN: Soft. EXTREMITIES: No pedal edema. LEONEL JAMES Oct 26, 2017 16:15
--- NOTE | 2017-10-26 17:31 | Cardiology Report ---
APPROVED REPORT EXAM: Two-dimensional and M-mode echocardiogram with Doppler and color Doppler. INDICATION Chest Pain M-Mode DIMENSIONS IVSd1.9 (0.7-1.1cm)Left Atrium (MM)4.0 (1.6-4.0cm) LVDd3.2 (3.5-5.6cm)Aortic Root2.7 (2.0-3.7cm) PWd1.2 (0.7-1.1cm)Aortic Cusp Exc.2.0 (1.5-2.0cm) LVDs2.0 (2.5-4.0cm) PWs2.1 cm Normal left ventricular chamber size,hyperdynamic systolic function and wall motion. Left ventricular ejection fraction estimated to be 70-75 %. Moderate left ventricular hypertrophy. Anterior Echo-free space, may be due to pericardial fat or effusion. All other cardiac chamber sizes are within normal limits. Focal aortic valve sclerosis with adequate cusp excursion. Thickened mitral valve leaflets with normal excursion. Mitral annulus and aortic root calcification. Normal pulmonic valve structure. Normal tricuspid valve structure. IVC is normal in size with physiological collapse. A color flow and spectral Doppler study was performed and revealed: No aortic insufficiency. Trace mitral regurgitation. Mitral diastolic velocities suggest mild left ventricular diastolic dysfunction (Grade I). Trace tricuspid regurgitation. Tricuspid systolic velocities suggests peak right ventricular systolic pressure of 19 mmHg. No pulmonic regurgitation present.
[2017-10-26] MEDS ORDERED: Nitroglycerin Subl 0.4mg tab SL PRN (18:45)
[2017-10-26] MEDS ORDERED: Morphine Sulfate 4mg/ml Inj IVP PRN (19:00)
[2017-10-26] MEDS ORDERED: Morphine Sulfate 2mg/ml Inj IVP PRN (19:00)
[2017-10-26] MEDS ORDERED: Atorvastatin 80mg tab ORAL SCH (21:00)
--- NOTE | 2017-10-26 23:28 | General Progress Note ---
Assessment/Plan Problem List: (1) Hypertensive emergency ICD Codes: I16.1 - Hypertensive emergency SNOMED: 312170882084175 (2) NSTEMI (non-ST elevated myocardial infarction) ICD Codes: I21.4 - Non-ST elevation (NSTEMI) myocardial infarction SNOMED: 584791161 (3) HLD (hyperlipidemia) ICD Codes: E78.5 - Hyperlipidemia, unspecified SNOMED: 05585100 (4) Chest pain ICD Codes: R07.9 - Chest pain, unspecified SNOMED: 24111880 (5) Uncontrolled diabetes mellitus ICD Codes: E11.9 - Type 2 diabetes mellitus without complications SNOMED: 056285672 (6) JEWELL (acute kidney injury) ICD Codes: N17.9 - Acute kidney failure, unspecified SNOMED: 94929815 Status: stable Assessment/Plan - cardiology consulted - trop peak at 17, now down to 4.5 - patient refusing transfer to higher level care for cardiac cath - lovenox per cardiology - aspirin - plavix - lipitor - nitro PRN - monitor BP - A1C 8.8 - cont levemir + MARY ALICE - diabetic cardiac diet DVT ppx w/ SCDs, lovenox FULL CODE Dispo: d/c pending cardiac clearance, likely in 1-2 days D/w pt/family, RN, SW/CM, cardiology regarding mgmt and dispo Subjective Date patient seen: Oct 26, 2017 Time patient seen: 15:00 ROS Limited/Unobtainable: No Constitutional: Reports: no symptoms HEENT: Reports: no symptoms Cardiovascular: Reports: no symptoms, chest pain Respiratory: Reports: no symptoms Gastrointestinal/Abdominal: Reports: no symptoms Genitourinary: Reports: no symptoms Neurologic/Psychiatric: Reports: no symptoms Endocrine: Reports: no symptoms Allergies: Coded Allergies: ASPIRIN (Unverified Allergy, Unknown, 05/08/14) PENICILLINS (Unverified Allergy, Unknown, 05/08/14) Uncoded Allergies: dye (Allergy, Severe, 05/09/14) All Systems: reviewed and negative except above Subjective No acute o/n events BPs improved Pt states chest pain improved. Has not ambulated yet. Denies f/c, n/v, d/c, abd pain, SOB Awaiting PT eval Pt does not feel ready to d/c today. She lives alone and has no one to pick her up today Objective Last 24 Hour Vital Signs Date Time Temp Pulse Resp B/P (MAP) Pulse Ox O2 Delivery O2 Flow Rate FiO2 10/26/17 22:21 76 158/78 10/26/17 20:00 97.7 76 20 158/78 98 Room Air 10/26/17 18:00 63 17 159/66 100 Room Air 10/26/17 17:00 68 16 153/60 100 Room Air 10/26/17 16:00 98.4 61 17 153/60 98 Room Air 10/26/17 16:00 67 10/26/17 15:00 63 17 159/66 100 Room Air 10/26/17 14:00 64 16 155/62 100 Room Air 10/26/17 13:00 67 18 149/63 98 Nasal Cannula 2.0 10/26/17 12:00 98.6 63 18 186/58 100 Nasal Cannula 2.0 10/26/17 12:00 58 10/26/17 11:00 67 18 155/55 98 Nasal Cannula 2.0 10/26/17 10:00 66 18 140/96 98 Nasal Cannula 2.0 10/26/17 09:00 65 18 155/59 98 Nasal Cannula 2.0 10/26/17 08:43 71 160/58 10/26/17 08:43 66 160/58 10/26/17 08:00 67 10/26/17 08:00 98.0 65 13 160/58 100 Nasal Cannula 2.0 10/26/17 07:00 58 14 161/78 100 Nasal Cannula 2.0 10/26/17 06:00 65 13 149/59 100 Nasal Cannula 2.0 10/26/17 05:00 65 17 152/61 100 Nasal Cannula 2.0 10/26/17 04:00 63 10/26/17 04:00 98.0 63 18 160/58 98 Nasal Cannula 2.0 10/26/17 03:00 65 19 183/69 98 Nasal Cannula 2.0 10/26/17 02:00 63 18 168/76 99 Nasal Cannula 2.0 10/26/17 01:00 60 17 146/61 99 Nasal Cannula 2.0 10/26/17 00:00 58 10/26/17 00:00 98.3 60 17 132/101 100 Nasal Cannula 2.0 Intake and Output 10/25/17 10/26/17 19:00 07:00 Output Total 4 ml 700 ml Balance -4 ml -700 ml Output Urine Total 4 ml 700 ml # Voids 1 Height (Feet): 5 Height (Inches): 7.00 Weight (Pounds): 205 Objective General: alert, cooperative, no distress, appears stated age Head: normocephalic, without obvious abnormality, atraumatic Eyes: conjunctivae/corneas clear. PERRL, EOM's intact Throat: lips, mucosa, and tongue normal. MMM Neck: supple, symmetrical, trachea midline, and no JVD Lungs: clear to auscultation bilaterally Heart: regular rate and rhythm, S1, S2 normal, no murmur, click, rub or gallop Abdomen: soft, non-tender, non-distended, bowel sounds normal Extremities: extremities normal, atraumatic, no cyanosis or edema Pulses: 2+ and symmetric Skin: skin color, texture, turgor normal; no rashes or lesions Neurologic: grossly normal, no focal deficits Enrrique Gonzalez M.D. Oct 26, 2017 23:28
[2017-10-26] MEDS ORDERED: METOPROLOL TART50 MG ORAL (23:33)
[2017-10-26] MEDS ORDERED: NITROSTAT0.4 M1 SL (23:33)
[2017-10-26] MEDS ORDERED: PLAVIX75 MG ORAL (23:33)
[2017-10-27 00:55] VITALS: BP 146/52
[2017-10-27 04:00] VITALS: BP 144/60
[2017-10-27] MEDS: NovoLOG Insulin Flexpen SUBQ SCH ×2 (06:10→11:29)
[2017-10-27 07:07] LABS: BASOPHILS % (AUTO) 1.1 % (0.0-2.0); EOSINOPHILS % (AUTO) 2.9 % (0.0-3.0); HEMATOCRIT 32.6 % (37.0-47.0); HEMOGLOBIN 10.7 G/DL (12.0-16.0); LYMPHOCYTES % (AUTO) 36.3 % (20.0-45.0); MEAN CORPUSCULAR VOLUME 91 FL (80-99); MONOCYTES % (AUTO) 9.9 % (1.0-10.0); NEUTROPHILS % (AUTO) 49.8 % (45.0-75.0); PLATELET COUNT 227 K/UL (150-450); RED BLOOD COUNT 3.57 M/UL (4.20-5.40); RED CELL DISTRIBUTION WIDTH 12.6 % (11.6-14.8); WHITE BLOOD COUNT 7.5 K/UL (4.8-10.8)
[2017-10-27 07:28] LABS: ANION GAP 8 mmol/L (5-15); BLOOD UREA NITROGEN 24 mg/dL (7-18); CALCIUM 9.3 MG/DL (8.5-10.1); CARBON DIOXIDE 29 MMOL/L (21-32); CHLORIDE 106 MMOL/L (98-107); CREATININE 1.2 MG/DL (0.55-1.30); POTASSIUM 4.3 MMOL/L (3.5-5.1); SODIUM 143 MMOL/L (136-145)
[2017-10-27 08:00] VITALS: BP 141/73
[2017-10-27 08:05] VITALS: BP 141/73
[2017-10-27] MEDS: Metoprolol Tartrate 50mg tab ORAL SCH (08:05)
[2017-10-27] MEDS: Docusate 100mg cap ORAL SCH (08:05)
[2017-10-27] MEDS: Levemir Flexpen SUBQ SCH (08:09)
[2017-10-27] MEDS ORDERED: Aspirin Baby 81mg ORAL SCH (09:00)
[2017-10-27] MEDS ORDERED: Enoxaparin 80mg Inj SUBQ SCH (09:00)
[2017-10-27] MEDS ORDERED: METOPROLOL TART50 MG ORAL (10:14)
[2017-10-27] MEDS ORDERED: ASPIR 8181 MG ORAL (10:16)
[2017-10-27] MEDS ORDERED: LIPITOR80 MG ORAL (10:51)
--- NOTE | 2017-10-27 11:15 | Cardiac Electrophysiology PN ---
Assessment/Plan Assessment/Plan 1. Bqm-LF-mtcqrrrvs myocardial infarction with peak troponin 17.5. Down to 4.5. Denies any chest pain. Aspirin, Plavix, Lopressor and Lipitor. Refuses cardiac cath. Echo EF 60% 2. Accelerated hypertension with blood pressure of more than 200. Better on metoprolol 50 mg b.i.d. and Norvasc 10 daily. 3. Insulin-dependent diabetes. 4. Hyperlipidemia. 5. Obesity. MIESHA RN. OK to [place] MIESHA [place] Subjective Subjective Transferred to Tele. Has no chest pain or SOB or any arrhythmias on tele. Objective Last 24 Hour Vital Signs Date Time Temp Pulse Resp B/P (MAP) Pulse Ox O2 Delivery O2 Flow Rate FiO2 10/27/17 08:05 62 141/73 10/27/17 08:05 62 141/73 10/27/17 08:00 97.2 62 20 141/73 99 Nasal Cannula 2.0 10/27/17 08:00 69 10/27/17 04:00 98.1 61 20 144/60 95 Room Air 10/27/17 04:00 57 10/27/17 00:55 98.2 63 20 146/52 99 Room Air 10/27/17 00:00 68 10/26/17 22:21 76 158/78 10/26/17 20:00 97.7 76 20 158/78 98 Room Air 10/26/17 20:00 73 10/26/17 18:00 63 17 159/66 100 Room Air 10/26/17 17:00 68 16 153/60 100 Room Air 10/26/17 16:00 98.4 61 17 153/60 98 Room Air 10/26/17 16:00 67 10/26/17 15:00 63 17 159/66 100 Room Air 10/26/17 14:00 64 16 155/62 100 Room Air 10/26/17 13:00 67 18 149/63 98 Nasal Cannula 2.0 10/26/17 12:00 98.6 63 18 186/58 100 Nasal Cannula 2.0 10/26/17 12:00 58 Intake and Output 10/26/17 10/27/17 19:00 07:00 Intake Total 120 ml 1600 ml Output Total 550 ml Balance -430 ml 1600 ml Intake Oral 120 ml 1600 ml Output Urine Total 550 ml # Bowel Movements 1 Laboratory Tests Test 10/27/17 06:35 White Blood Count 7.5 K/UL (4.8-10.8) Red Blood Count 3.57 M/UL (4.20-5.40) L Hemoglobin 10.7 G/DL (12.0-16.0) L Hematocrit 32.6 % (37.0-47.0) L Mean Corpuscular Volume 91 FL (80-99) Mean Corpuscular Hemoglobin 29.9 PG (27.0-31.0) Mean Corpuscular Hemoglobin Concent 32.7 G/DL (32.0-36.0) Red Cell Distribution Width 12.6 % (11.6-14.8) Platelet Count 227 K/UL (150-450) Mean Platelet Volume 8.7 FL (6.5-10.1) Neutrophils (%) (Auto) 49.8 % (45.0-75.0) Lymphocytes (%) (Auto) 36.3 % (20.0-45.0) Monocytes (%) (Auto) 9.9 % (1.0-10.0) Eosinophils (%) (Auto) 2.9 % (0.0-3.0) Basophils (%) (Auto) 1.1 % (0.0-2.0) Sodium Level 143 MMOL/L (136-145) Potassium Level 4.3 MMOL/L (3.5-5.1) Chloride Level 106 MMOL/L (98-107) Carbon Dioxide Level 29 MMOL/L (21-32) Anion Gap 8 mmol/L (5-15) Blood Urea Nitrogen 24 mg/dL (7-18) H Creatinine 1.2 MG/DL (0.55-1.30) Estimat Glomerular Filtration Rate mL/min (>60) Glucose Level 97 MG/DL (74-106) Calcium Level 9.3 MG/DL (8.5-10.1) Phosphorus Level 4.0 MG/DL (2.5-4.9) Magnesium Level 2.0 MG/DL (1.8-2.4) Objective HEAD AND NECK: No JVD. LUNGS: Clear. CARDIOVASCULAR: Regular S1 and S2 with no gallop or murmur. ABDOMEN: Soft. EXTREMITIES: No pedal edema. LEONEL JAMES Oct 27, 2017 11:15
--- NOTE | 2017-10-27 13:36 | Discharge Summary ---
Discharge Summary Hospital Course Date of Admission Oct 23, 2017 at 20:12 Date of Discharge Oct 27, 2017 at 12:15 Admitting Diagnosis CHEST PAIN, Acute coronary syndrome Reason for Hospitalization: NSTEMI HPI 72 year old female with past medical history significant for hypertension, CAD, CVA and Dm presenting with substernal chest pain starting 30 minutes prior to presetation. Endorses associated dyspnea on exertion and diaphoresis. notes some nausea but no emesis. No abdominal pain, fevers or cough. EKG in the ER showed Twave changes. Initially hypertensive over 200. CT chest noncon unremarkable. initial trop negative but started rising today. patient evaluated by cardiology and offered transfer to higher level care for angiography but patient refused. Consultations Cardiology Hospital Course Pt was admitted to tele and then transferred to ICU uptrending troponin. She was seen by cardiology and started on lovenox for NSTEM. Cardiology recommended transfer to higher level for cardiac cath but pt adamantly refused; therefore, she was medically managed. Trop peaked at 17 and then downtrended. TTE showed EF 70%. Her cardiac medications were optimized. She is to be on ASA + plavix on discharge. Blood pressures improved prior to discharge. Prior to d/c, pt was hemodynamically stable, tolerating PO and ambulating w/ FWW. Discharge physical exam General: alert, cooperative, no distress, appears stated age Head: normocephalic, without obvious abnormality, atraumatic Eyes: conjunctivae/corneas clear. PERRL, EOM's intact Throat: lips, mucosa, and tongue normal. MMM Neck: supple, symmetrical, trachea midline, and no JVD Lungs: clear to auscultation bilaterally Heart: regular rate and rhythm, S1, S2 normal, no murmur, click, rub or gallop Abdomen: soft, non-tender, non-distended, bowel sounds normal; no masses or organomegaly Extremities: extremities normal, atraumatic, no cyanosis or edema Pulses: 2+ and symmetric Skin: skin color, texture, turgor normal; no rashes or lesions Neurologic: grossly normal, no focal deficits Discharge Medications New Medications: Atorvastatin (Lipitor) 80 Mg Tablet 80 MG ORAL BEDTIME for 30 Days, #30 TAB 1 Refill Clopidogrel Bisulfate* (Plavix*) 75 Mg Tablet 75 MG ORAL DAILY for 90 Days, TAB Metoprolol Tartrate* (Metoprolol Tartrate*) 50 Mg Tablet 50 MG ORAL Q12HR for 30 Days, #60 TAB 2 Refills Nitroglycerin (Nitrostat) 0.4 Mg Tab.subl 0.4 MG SL .Q5MIN X 3 DOSES PRN for 30 Days, TAB Continued Medications: Amlodipine Besylate* (Amlodipine Besylate*) 10 Mg Tablet #60 Amlodipine Besylate* (Amlodipine Besylate*) 10 Mg Tablet 10 MG ORAL DAILY, TAB Aspirin* (Aspir 81*) 81 Mg Tablet.dr 81 MG ORAL DAILY for 90 Days, #90 TAB 3 Refills (This prescription has been renewed) Fenofibrate Nanocrystallized (Fenofibrate) 145 Mg Tablet #30 Insulin Detemir (Levemir) 100 Units/Ml Pen #15 No Known Medications* (NKM - No Known Medications*) . 0 ., 0 Refills Discontinued Medications: Bysto (Bystolic) 10 Mg Tab #90 Olmesartan/Hydrochlorothiazide 40-12.5MG (Benicar Hct 40-12.5 Mg Tablet) 1 Each Tablet 1 TAB ORAL DAILY, TAB Spironolact/Hydrochlorothiazid (Spironolactone-Hctz 25-25 Tab) 1 Each Tablet 1 TAB ORAL DAILY, TAB Discharge Condition Upon Discharge: stable Discharge Disposition Patient was discharged to Home with Home Health(06) Discharge Diagnoses: (1) NSTEMI (non-ST elevated myocardial infarction) (2) Uncontrolled diabetes mellitus (3) Hypertensive emergency (4) JEWELL (acute kidney injury) (5) HLD (hyperlipidemia) Enrrique Gonzalez M.D. Oct 27, 2017 13:36
[2017-10-27] MEDS ORDERED: Miralax 17gm pkt ORAL PRN (17:30)
--- NOTE | 2017-11-03 17:24 | Cardiology Report ---
APPROVED REPORT EKG Measurement Heart [id number] Normal sinus rhythm Voltage criteria for left ventricular hypertrophy T wave abnormality, consider inferolateral ischemia Abnormal ECG
--- NOTE | 2017-11-03 17:30 | Cardiology Report ---
APPROVED REPORT EKG Measurement Heart [id number] Normal sinus rhythm Voltage criteria for left ventricular hypertrophy T wave abnormality, consider lateral ischemia Abnormal ECG
== END 2017-10-27 12:15 | disposition home health service (06) | DRG 281 ==
LOC: EMR 19:36 → EDBEDREQ 20:04 → 2E 20:12 → EDBEDREQ 10-24 06:33 → ICU 10-24 13:26 → 2E 10-26 18:40
DX: I21.4 Non-ST elevation (NSTEMI) myocardial infarction (principal); I16.1 Hypertensive emergency; N17.9 Acute kidney failure, unspecified; E11.65 Type 2 diabetes mellitus with hyperglycemia; Z79.4 Long term (current) use of insulin; E78.5 Hyperlipidemia, unspecified; E66.9 Obesity, unspecified; I25.10 Atherosclerotic heart disease of native coronary artery without angina pectoris; Z95.5 Presence of coronary angioplasty implant and graft; Z88.6 Allergy status to analgesic agent; Z88.0 Allergy status to penicillin; Z53.29 Procedure and treatment not carried out because of patient's decision for other reasons
CPT/HCPCS: 36415; 71045; 71250; 80048; 80053; 80061; 81003; 82550; 82553; 82962; 83036; 83605; 83690; 83735; 83880; 84100; 84443; 84484; 85025; 85379; 85610; 85730; 87040; 87181; 93005; 93306; 99285; J1815; S5561